=== PATIENT | male | born 2000 | race Caucasian/White ===

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

== ENCOUNTER 2024-01-27 23:09 | Emergency (ER) | payer OTHER, MEDICAID ==
[~2024-01-27] VITALS: Ht 167.6 cm; Wt 69.0 kg
[2024-01-27 23:46] VITALS: O2SAT 99
[2024-01-28] MEDS: KETOROLAC 15MG/ML VIAL IM ONE (01:02)
[2024-01-28] MEDS ORDERED: NAPR-1176 MT (01:11)
[2024-01-28 02:07] VITALS: BP 113/92; PULSE 71; RESP 16; TEMP 98.2
== END 2024-01-28 02:09 | disposition home or self-care (01) ==
LOC: ER 23:35
DX: M25.562 Pain in left knee (principal); F12.10 Cannabis abuse, uncomplicated
CPT/HCPCS: 99283; 73562; 96372; J1885